=== PATIENT | female | born 1980 ===

== ENCOUNTER 2023-01-17 07:28 | Outpatient (AMB) | payer OTHER, SELFPAY ==
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
[2023-01-17 07:39] VITALS: BP 122/76; PULSE 104; BMI 25.4
== END 2023-01-17 08:29 | disposition home or self-care (01) ==
PROVIDERS: PCP Internal Medicine; Visit Provider Physician Assistant
DX: K52.9 Noninfective gastroenteritis and colitis, unspecified (principal); K64.9 Unspecified hemorrhoids
CPT/HCPCS: 99204

== ENCOUNTER 2023-01-17 07:28 | Outpatient (REF) | payer OTHER, SELFPAY ==
[2023-01-17 09:52] LABS: MANUAL DIFF FLAG NO
[2023-01-17 10:03] LABS: Basophils Absolute Auto 0.1 X10*3/uL (0.0-0.2); Basophils Percent Auto 0.9 % (0-2); Eosinophils Absolute Auto 0.1 X10*3/uL (0.0-0.4); Eosinophils Percent Auto 1.5 % (0-4); Hematocrit 33.6 % (37.0-47.0); Hemoglobin 10.4 g/dl (12.0-16.0); Imm Gran Abs Auto 0.02 X10*3/uL (0.00-0.03); Imm Gran Pct Auto 0.3 % (0.0-0.4); Lymphocytes Absolute Auto 1.7 X10*3/uL (1.2-4.9); Lymphocytes Percent Auto 25.1 % (20-40); Mean Corpuscular Hemoglobin 24.9 pg (27.0-33.0); Mean Corpuscular Volume 80.4 fL (80.0-98.0); Mean Platelet Volume 8.9 fL (9.4-12.3); Monocytes Absolute Auto 0.6 X10*3/uL (0.1-1.2); Monocytes Percent Auto 8.3 % (2-11); Neutrophils Absolute Auto 4.3 x10*3/uL (2.0-8.3); Neutrophils Percent Auto 63.9 % (45-73); Platelet Count 721 X10*3/uL (160-400); Red Blood Count 4.18 X10*6/uL (4.20-5.50); Red Cell Distribution Width 18.8 % (11.0-16.0); White Blood Count 6.7 X10*3/uL (4.8-10.8)
[2023-01-17 10:57] LABS: Alanine Aminotransferase 47 U/L (0-31); Albumin Level 4.2 g/dL (3.5-5.0); Alkaline Phosphatase 62 U/L (39-117); Anion Gap 12 (12-20); Aspartate Amino Transferase 26 U/L (5-31); Bilirubin Total 0.3 mg/dL (0.0-1.0); Blood Urea Nitrogen 13 mg/dL (9-16); C Reactive Protein 0.33 mg/dL (< or = 0.50); Calcium 9.2 mg/dL (8.4-10.2); Carbon Dioxide 25 mmol/L (22-29); Chloride 105 mmol/L (96-108); Estimated Glomerular Filt Rate > 60; Glucose Random 152 mg/dL (60-115); Iron 21 mcg/dL (30-160); Percent Iron Saturation 5 % (15-50); Potassium 4.2 mmol/L (3.3-5.1); Sodium 138 mmol/L (135-145); Total Iron Binding Capacity 452 mcg/dL (228-428); Total Protein 7.8 g/dL (6.5-8.0); Unsaturated Iron Binding 431 ug/dL
[2023-01-17 11:00] LABS: Erythrocyte Sedimentation Rate 7 MM/HR (0-20)
[2023-01-17 11:01] LABS: Thyroid Stimulating Hormone 0.74 uIU/mL (0.32-4.0)
== END 2023-01-17 07:29 | disposition home or self-care (01) ==
LOC: HO.LAB 07:28
PROVIDERS: PCP Internal Medicine; Visit Provider Physician Assistant
DX: K52.9 Noninfective gastroenteritis and colitis, unspecified (principal); K64.9 Unspecified hemorrhoids; R19.8 Other specified symptoms and signs involving the digestive system and abdomen; D64.9 Anemia, unspecified
CPT/HCPCS: 36415; 80053; 83540; 84443; 85025; 85652; 86140

== ENCOUNTER 2023-03-13 08:43 | Outpatient (REF) | payer OTHER, SELFPAY ==
[2023-03-13 10:49] LABS: Hematocrit 43.9 % (37.0-47.0); Hemoglobin 13.9 g/dl (12.0-16.0); Mean Corpuscular HGB Conc 31.7 g/dl (31.0-35.0); Mean Corpuscular Hemoglobin 25.6 pg (27.0-33.0); Mean Corpuscular Volume 80.7 fL (80.0-98.0); Mean Platelet Volume 8.8 fL (9.4-12.3); Platelet Count 585 X10*3/uL (160-400); Red Blood Count 5.44 X10*6/uL (4.20-5.50); White Blood Count 5.1 X10*3/uL (4.8-10.8)
[2023-03-13 11:23] LABS: Alanine Aminotransferase 20 U/L (0-31); Albumin Level 4.4 g/dL (3.5-5.0); Alkaline Phosphatase 46 U/L (39-117); Anion Gap 12 (12-20); Aspartate Amino Transferase 17 U/L (5-31); Bilirubin Total 0.3 mg/dL (0.0-1.0); Blood Urea Nitrogen 11 mg/dL (9-16); Calcium 9.4 mg/dL (8.4-10.2); Carbon Dioxide 24 mmol/L (22-29); Chloride 104 mmol/L (96-108); Estimated Glomerular Filt Rate > 60; Glucose Random 84 mg/dL (60-115); Iron 92 mcg/dL (30-160); Percent Iron Saturation 27 % (15-50); Potassium 4.3 mmol/L (3.3-5.1); Sodium 136 mmol/L (135-145); Total Iron Binding Capacity 344 mcg/dL (228-428); Total Protein 7.8 g/dL (6.5-8.0); Unsaturated Iron Binding 252 ug/dL
[2023-03-13 11:36] LABS: HBc Num1 0.11 S/CO (0.00-0.79); HBsAGNum1 0.35 S/CO (0.00-0.99); Hepatitis A Antibody IgG Nonreactive (Nonreactive); Hepatitis B Core Antibody Nonreactive (Nonreactive); Hepatitis B Surface Antigen Negative (Negative); ~HepC Num1 0.28 S/CO (0.00-0.79); ~Hepatitis A Antibody IgG 0.48 S/CO (0.00-0.99); ~Hepatitis B Surface Antibody REACTIVE (Nonreactive); ~Hepatitis C Antibody Nonreactive (Nonreactive)
[2023-03-13 11:39] LABS: Ferritin 379 ng/mL (10-250); TSH reflex Free T4 0.78 uIU/mL (0.32-4.0)
[2023-03-13 11:49] LABS: Folate 11.6 ng/mL (> or = 4.0); Vitamin B12 577 pg/mL (200-900)
[2023-03-14 13:33] LABS: Transglutaminase IgA <1.0 U/mL
[2023-03-14 18:43] LABS: Immunoglobulin A 169 mg/dL (47-310)
[2023-03-16 08:28] LABS: TS Negative Control Passed; TS Panel A 0; TS Panel B 1; TS Positive Control Passed; TSpotTB Negative (Negative)
[2023-03-22 20:14] LABS: TPMT Activity 22
== END 2023-03-13 08:44 | disposition home or self-care (01) ==
LOC: HO.LAB 08:43
PROVIDERS: PCP Internal Medicine; Visit Provider Internal Medicine
DX: Z11.1 Encounter for screening for respiratory tuberculosis (principal); K51.90 Ulcerative colitis, unspecified, without complications; K52.9 Noninfective gastroenteritis and colitis, unspecified
CPT/HCPCS: 36415; 80053; 82306; 82607; 82728; 82746; 82784; 83540; 84433; 84443; 85027; 86140; 86364; 86481; 86704; 86706; 86708; 86803; 87340

== ENCOUNTER 2023-03-13 08:43 | Outpatient (AMB) | payer OTHER, SELFPAY ==
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
[2023-03-13 08:49] VITALS: BP 127/86; PULSE 105; BMI 29.5
== END 2023-03-13 10:09 | disposition home or self-care (01) ==
PROVIDERS: PCP Internal Medicine; Visit Provider Internal Medicine
DX: K52.9 Noninfective gastroenteritis and colitis, unspecified (principal); K51.90 Ulcerative colitis, unspecified, without complications
CPT/HCPCS: 99214

== ENCOUNTER 2023-05-29 08:42 | Outpatient (AMB) | payer OTHER, SELFPAY ==
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
[2023-05-29 08:44] VITALS: BP 132/81; PULSE 100; BMI 32.2
== END 2023-05-29 09:24 | disposition home or self-care (01) ==
PROVIDERS: PCP Internal Medicine; Visit Provider Internal Medicine
DX: K52.9 Noninfective gastroenteritis and colitis, unspecified (principal); K51.90 Ulcerative colitis, unspecified, without complications
CPT/HCPCS: 99214

== ENCOUNTER 2023-05-29 08:42 | Outpatient (REF) | payer OTHER, SELFPAY ==
[2023-06-04 15:43] LABS: Calprotectin, Fecal 425 mcg/g
== END 2023-05-29 08:43 | disposition home or self-care (01) ==
LOC: HO.LNP 08:42
PROVIDERS: PCP Internal Medicine; Visit Provider Internal Medicine
DX: K51.90 Ulcerative colitis, unspecified, without complications (principal)
CPT/HCPCS: 83993

== ENCOUNTER 2023-11-27 08:47 | Outpatient (AMB) | payer OTHER, SELFPAY ==
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
[2023-11-27 08:51] VITALS: BP 126/83; PULSE 95; BMI 28.8
== END 2023-11-27 09:42 | disposition home or self-care (01) ==
PROVIDERS: PCP Internal Medicine; Visit Provider Internal Medicine
DX: K50.10 Crohn's disease of large intestine without complications (principal)
CPT/HCPCS: 99214

== ENCOUNTER → 2023-11-27 08:47 | Outpatient (BNVA) | payer OTHER, SELFPAY | PROVIDERS: PCP Internal Medicine; Visit Provider Internal Medicine | DX: K50.10 Crohn's disease of large intestine without complications (principal) | CPT/HCPCS: 99212 ==

== ENCOUNTER 2024-03-10 06:21 | Day surgery (SDC) | payer OTHER, SELFPAY ==
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
[2024-03-10] VITALS (7 sets, daily range): BP systolic 117–148; BP diastolic 75–86; PULSE 67–85; RESP 16–18; TEMP 36.1–36.9; O2SAT 93–99; BMI 27.5
--- OUTSIDE RECORDS SUMMARY | 2024-03-10 06:24 | XMS_ITS | Clinical Summary ---
Author Organization [facility] Address [address] [place] [address] Care Team Providers Care Sheet Rock Taper Helper Name Role Phone Nathan Lovelace DO Primary Care Provider [phone] Allergies Active Allergy Reactions Criticality Noted Date Comments Amoxicillin Hives Medium 01/21/2023 Penicillins Hives Medium 01/21/2023 Medications Medication Sig Dispensed Refills Start Date End Date Status cetirizine (ZyrTEC) 10 MG tablet Take 1 tablet (10 mg total) by mouth daily. 0 Active Probiotic Product (PROBIOTIC DAILY PO) Take by mouth. 0 Active omeprazole (PriLOSEC) 20 MG capsule Take 1 capsule (20 mg total) by mouth daily. 0 Active citalopram (CeleXA) 20 MG tablet Take 1 tablet (20 mg total) by mouth daily. 0 Active norethindrone (AYGESTIN) 5 MG tablet Take 1 tablet (5 mg total) by mouth 2 (two) times a day. 0 Active mesalamine (DELZICOL) 400 MG CPDR capsule Take 2 capsules (800 mg total) by mouth 3 (three) times a day. 0 Active Active Problems Problem Noted Date Diagnosed Date Absolute anemia 02/12/2023 Social History Tobacco Use Types Packs/Day Years Used Date Smoking Tobacco: Every Day Cigarettes 0.5 Smokeless Tobacco: Never Tobacco Cessation:Ready to Q uit: Not Asked; Counseling Given: Not Answered Alcohol Use Standard Drinks/Week Comments Never 0 (1 standard drink = 0.6 oz pur e alcohol) Sex and Gender Information Value Date Recorded Sex Assigned at Female 01/10/2023 1:20 PM EST Gender Identity Not on file Sexual Orientation Not on file Job Start Date Occupation Industry Not on file Not on file Not on file Last Filed Vital Signs Vital Sign Reading Time Taken Comments Blood Pressure 123/63 03/01/2023 8:24 AM EST Pulse 82 03/01/2023 8:24 AM EST Temperature 36.9 ??C (98.5 ??F) 03/01/2023 8:24 AM ES T Respiratory Rate 18 03/01/2023 8:24 AM EST Oxygen Saturation 100% 03/01/2023 8:24 AM EST Inhaled Oxygen Concentration - - Weight 76.9 kg (169 lb 9.6 oz) 02/19/2023 8:10 A M EST Height - - Body Mass Index - - Plan of Treatment Health Maintenance Due Date Last Done Comments Hepatitis B Vaccines (1 of 3 - 3-dose series) 1980 Hepatitis C Screening 1980 COVID-19 Vaccine (#1) 1980 Pneumococcal Vaccine (1 of 2 - PCV) 1986 Depression Screening 1992 Preventative Health Evaluation 1998 Tobacco Cessation Counseling 1998 DTap / Tdap / Td (1 - Tdap) 1999 Cervical Cancer Screening (Pap Smear) 2001 Influenza Vaccine (#1) 2023 3, 01/01/2006 RSV Ped < 20 months Aged Out No longe r eligible based on patient's age to complete this topic Care Teams Sheet Rock Taper Helper Relationship Specialty Start Date End Date Nathan Lovelace DO [address] [place] [id number] PCP - General Internal Medicine 01/10/17
[2024-03-10] MEDS: Lactated Ringers 1,000 ML 100 ML IVCONT (06:52)
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
--- NOTE | 2024-03-10 09:09 | P.OPN-COLO_ITS ---
Colonoscopy Operative Note Operative Note Date of Service: 03/10/24 Narrative: Procedure: Colonoscopy Indication: Crohns disease Endoscopist: Celine Nascimento MD Anesthesia type: Conscious sedation Medications: Fentanyl 187.5 mcg and midazolam 5 mg Total sedation time was 28 minutes. Instrument: Olympus [id number]-H190L Consent: Indication, risks vs benefits, and alternatives were discussed with the patient who gave written informed consent to proceed. EKG, pulse, pulse oximetry and blood pressure were monitored throughout the procedure. Please see anesthesia flowsheet. Procedure: The patient was brought to the procedure room and placed in the left lateral decubitus position. IV medications were administered by the anesthesia provider in attendance. A digital rectal exam was performed which was normal. A distal attachment cap was affixed to the tip of the colonoscope which was then inserted through the anus and advanced through the colon to the cecum at 75 cm,and terminal ileum. Appendiceal orifice and ileocecal valve were identified. Mucosa was carefully examined under high definition white light as the instrument was slowly withdrawn in a retrograde panoramic fashion. Retroflexion was performed in rectum. The procedure was not difficult. There were no immediate obvious complications. The quality of the prep was BBPS: 2+3+3 = adequate Withdrawal time 14 minutes. Limitations: No limitations. Findings: Mucosa: Normal to cecum and terminal ileum on endoscopic appearance. Up to 10 cm of terminal ileum was intubated. Cold forceps biopsies were taken from cecum, ascending, transverse, descending, sigmoid colon and rectum. Protruding lesions: * 2 sessile polyp of size 2 mm in transverse colon. Cold forceps polypectomy was performed. The polyps were completely removed and retrieved. * Medium internal hemorrhoids without stigmata of recent bleeding. Excavated lesions: * Rare diverticula in sigmoid colon. Impression: 1. Normal colon and terminal ileum mucosa 2. Total of 2 polyps removed 3. Diverticulosis 4. Internal hemorrhoids Recommendations: - Follow path results. - Repeat colonoscopy in 5-7 years if the polyps are adenoma - Continue budesonide taper as prescribed
[2024-03-10] MEDS: ondansetron HCL 4 MG/2 ML VIAL IVPUSH ×2 (10:06→10:16)
== END 2024-03-10 11:42 | disposition home or self-care (01) ==
PROVIDERS: PCP Internal Medicine; Visit Provider Internal Medicine
PROC: 0DJD8ZZ Inspection of Lower Intestinal Tract, Via Natural or Artificial Opening Endoscopic (ICD-10-PCS; CPT 45378; principal; 2024-03-10 08:30)
DX: K50.10 Crohn's disease of large intestine without complications (principal); K63.5 Polyp of colon; K57.30 Diverticulosis of large intestine without perforation or abscess without bleeding; K64.8 Other hemorrhoids; Z87.442 Personal history of urinary calculi; Z79.899 Other long term (current) drug therapy; Z88.0 Allergy status to penicillin; Z88.1 Allergy status to other antibiotic agents; F17.210 Nicotine dependence, cigarettes, uncomplicated
CPT/HCPCS: 45380; 88305; J2003; J2250; J2310; J2405; J2704; J3010

== ENCOUNTER → 2024-03-10 06:21 | Outpatient (BNV) | payer OTHER, SELFPAY | PROVIDERS: PCP Internal Medicine; Visit Provider Internal Medicine | DX: K50.10 Crohn's disease of large intestine without complications (principal); K63.5 Polyp of colon; K57.30 Diverticulosis of large intestine without perforation or abscess without bleeding; K64.8 Other hemorrhoids | CPT/HCPCS: 45380 ==

== ENCOUNTER 2024-12-15 14:25 | Emergency (ER) | payer OTHER, SELFPAY ==
--- NOTE | ~2024-12-15 | CT_ITS ---
EXAMINATION: CT HEAD WITHOUT IV CONTRAST HISTORY: head injury at work, vomiting, headache. TECHNIQUE: Unenhanced helical CT of the head was performed per standard departmental protocol. Coronal and sagittal reformats of the head were also evaluated. One or more of the following techniques was used for dose reduction: Automated exposure control, adjustment of the mA and/or kV according to patient size, use of iterative reconstruction technique. DLP: 703 mGy-cm COMPARISON: There are no prior studies available for comparison. FINDINGS: BRAIN: The brain parenchyma is unremarkable. There is normal taylor/white differentiation. The ventricular system is normal in size and configuration. There is no mass effect or midline shift. No intra- or extra-axial fluid collections are identified. SINUSES: The visualized paranasal sinuses are clear. The mastoid air cells and middle ear cavities are well pneumatized. ORBITS: The visualized orbits are unremarkable. BONES/SOFT TISSUES: The extracranial soft tissues are unremarkable. The calvarium is intact. No suspicious lytic or sclerotic lesions. Degenerative changes at the bilateral temporomandibular joints. CT/CT head/brain wo IV con IMPRESSION: No acute intracranial abnormality. Electronically signed by: Jessica Amor MD 12/15/2024 03:11 PM [facility]
--- NOTE | ~2024-12-15 | CT_ITS ---
EXAMINATION: CT CERVICAL SPINE WITHOUT IV CONTRAST HISTORY: head injury at work, neck pain. TECHNIQUE: Helical CT of the cervical spine was performed per standard departmental protocol. Coronal and sagittal reformatted images were also evaluated. One or more of the following techniques was used for dose reduction: Automated exposure control, adjustment of the mA and/or kV according to patient size, use of iterative reconstruction technique. DLP: 320 mGy-cm COMPARISON: There are no prior studies available for comparison. FINDINGS: CERVICAL SPINE: Bone alignment is normal. No fracture or dislocation. Mild degenerative spondylosis and disc space narrowing at C5-6. BRAIN: The visualized portion of the brain is unremarkable. SINUSES: The visualized paranasal sinuses, mastoid air cells and middle ear cavities are unremarkable. LUNG APICES: The visualized lung apices are clear. Azygos lobe. SOFT TISSUES: The visualized paraspinal soft tissues are unremarkable. CT/CT cervical spine wo IV con IMPRESSION: No evidence of fracture or malalignment of the cervical spine. Degenerative changes at C5-6. Electronically signed by: Jessica Amor MD 12/15/2024 03:16 PM [id number]
[2024-12-15 14:30] VITALS: BP 148/82; PULSE 98; RESP 18; TEMP 36.1; O2SAT 100; BMI 28.5
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
[2024-12-15 16:30] VITALS: BP 148/82; PULSE 98; RESP 18; TEMP 36.1; O2SAT 100
--- OUTSIDE RECORDS SUMMARY | 2024-12-15 18:21 | XMS_ITS | Clinical Summary ---
Author Organization [facility] Address [address] [place] [address] Care Team Providers Care Acquisitions Analyst Name Role Phone Nathan Lovelace DO Primary Care Provider [phone] Allergies Active Allergy Reactions Criticality Noted Date [...] 82 03/01/2023 8:24 AM EST Temperature 36.9 C (98.5 F) 03/01/2023 8:24 AM EST Respiratory Rate 18 03/01/2023 8:24 AM EST [...] Screening (Pap Smear) 2001 Influenza Vaccine (#1) 2024 3, 01/01/2006 RSV Ped < 20 months Aged Out No longe r eligible based on patient's age to complete this topic Care Teams Acquisitions Analyst Relationship Specialty Start Date End Date Nathan Lovelace DO [address] [place] [address] [address] [place] [address] PCP - General Internal Medicine 01/10/17
== END 2024-12-15 16:31 | disposition home or self-care (01) ==
PROVIDERS: Emergency Provider Emergency Medicine; PCP Internal Medicine
DX: S06.0X0A Concussion without loss of consciousness, initial encounter (principal); W20.8XXA Other cause of strike by thrown, projected or falling object, initial encounter; Y93.9 Activity, unspecified; Y92.9 Unspecified place or not applicable; Y99.0 Civilian activity done for income or pay; Z88.0 Allergy status to penicillin
CPT/HCPCS: 70450; 72125; 99282; 99284

== ENCOUNTER → 2024-12-15 14:32 | Outpatient (BNV) | payer OTHER, SELFPAY | PROVIDERS: Emergency Provider Emergency Medicine; PCP Internal Medicine; Visit Provider Radiology Diagnostic Radiology | DX: M54.2 Cervicalgia (principal); R11.10 Vomiting, unspecified; R51.9 Headache, unspecified; S09.90XA Unspecified injury of head, initial encounter | CPT/HCPCS: 70450; 72125 ==